=== PATIENT | male | born 1965 | race Caucasian/White ===

== ENCOUNTER 2023-04-30 17:02 | Inpatient (IN) | payer OTHER ==
[2023-04-30 18:12] VITALS: BMI 35.2
[2023-04-30] MEDS ORDERED: BENZONATATE 200 MG CAPSULE PO PRN (18:57)
[2023-04-30] MEDS ORDERED: POLYETHYLENE GLYCOL (HEALTHYLAX) 3350 17 GM PACKET PO PRN (18:57)
[2023-04-30] MEDS ORDERED: BENZOCAINE/MENTHOL (CHLORASEPTIC ) LOZENGE MM PRN (18:57)
[2023-04-30] MEDS ORDERED: DICYCLOMINE HCL 10 MG CAPSULE PO PRN (18:57)
[2023-04-30] MEDS ORDERED: MAG HYDROX/AL HYDROX/SIMETH 30 ML UNIT-DOSE CUP PO PRN (18:57)
[2023-04-30] MEDS ORDERED: MAGNESIUM HYDROX 2400MG/30ML ORAL SUSPENSION 30 ML CUP PO PRN (18:57)
[2023-04-30] MEDS ORDERED: ONDANSETRON *ODT* 4 MG TABLET SL PRN (18:57)
[2023-04-30] MEDS ORDERED: IBUPROFEN 400 MG TABLET (FP) PO PRN (18:57)
[2023-04-30] MEDS ORDERED: LOPERAMIDE HCL 2 MG CAPSULE PO PRN (18:57)
[2023-04-30] MEDS ORDERED: NALOXONE HCL (KLOXXADO) 8 MG SPRAY NS PRN (18:57)
[2023-04-30] MEDS ORDERED: NALOXONE HCL 0.4 MG/ML VIAL IM PRN (18:57)
[2023-04-30] MEDS ORDERED: IBUPROFEN 600 MG TABLET (FP) PO PRN (18:57)
[2023-04-30] MEDS ORDERED: P-EPHED 60MG/TRIPROLIDI 2.5MG TABLET PO PRN (18:57)
[2023-04-30] MEDS ORDERED: BISMUTH SUBSALICYLATE 524 MG/30 ML PO PRN (18:57)
[2023-04-30] MEDS ORDERED: guaiFENesin 600 MG TABLET.ER (FP) PO PRN (18:57)
[2023-04-30] MEDS ORDERED: ALBUTEROL SO4 HFA INHALER IH PRN (21:46)
[2023-04-30] MEDS: MELATONIN 5 MG TABLETS PO SCH (22:35)
[2023-04-30] MEDS: THIAMINE HCL 100 MG TABLET (FP) PO SCH (22:36)
[2023-04-30] MEDS: cloNIDine HCL 0.1 MG TABLET PO PRN (23:00)
[2023-05-01 10:30] LABS: HEMATOCRIT 38.4 % (35.4-49); HEMOGLOBIN 12.9 GM/dL (11.7-16.9); MCH 30.5 pg (25.7-33.7); MCHC 33.6 g/dl (32.0-35.9); MEAN CELL VOLUME 90.6 fl (80-96); MEAN PLT VOLUME 9.4 fl (7.5-11.1); PLATELET COUNT 164 10^3/uL (134-434); RBC 4.23 M/mm3 (4.00-5.60); RDW 13.9 % (11.9-15.9); WHITE BLOOD COUNT 5.3 K/mm3 (4.0-10.0)
[2023-05-01] MEDS: PRENATAL VITAMINS W/ FOLIC ACID TABLET (FP) PO SCH (10:31)
[2023-05-01 10:38] LABS: POTASSIUM 3.9 mmol/L (3.5-5.1)
[2023-05-01 10:51] LABS: ALBUMIN 3.2 g/dl (3.4-5.0); BLOOD UREA NITROGEN 14.2 mg/dL (7-18); CALCIUM 9.2 mg/dL (8.5-10.1)
[2023-05-01 10:53] LABS: CREATININE 0.8 mg/dL (0.55-1.3)
[2023-05-01 10:54] LABS: BILIRUBIN,TOTAL 0.8 mg/dL (0.2-1)
[2023-05-01] MEDS: methaDONE HCL 10 MG TABLET (FOR DETOX USE ONLY) PO ONE (11:15)
[2023-05-02] MEDS: METHOCARBAMOL 500 MG TABLET PO PRN (09:58)
[2023-05-02] MEDS: cloNIDine HCL 0.1 MG TABLET PO PRN (21:39)
[2023-05-03] MEDS: methaDONE HCL 10 MG TABLET (FOR DETOX USE ONLY) PO ONE (10:16)
[2023-05-03] MEDS ORDERED: BUPRENORPHINE/NALOXONE 4 MG/1 MG FILM PACKET SL SCH (14:30)
[2023-05-03] MEDS: BUPRENORPHINE/NALOXONE 2 MG/0.5 MG FILM PACKET SL ONE (15:14)
[2023-05-03] MEDS: BUPRENORPHINE/NALOXONE 4 MG/1 MG FILM PACKET SL SCH (17:22)
[2023-05-03] MEDS: ACETAMINOPHEN 325 MG TABLET (FP) PO PRN (23:02)
[2023-05-04] MEDS: BUPRENORPHINE/NALOXONE 8 MG/2 MG FILM PACKET SL ONE (06:07)
[2023-05-04] MEDS ORDERED: KETOROLAC TROMETHAMINE 15 MG/ML VIAL IM ONE (08:57)
[2023-05-04] MEDS: KETOROLAC TROMETHAMINE 30 MG/1 ML VIAL IM ONE (09:52)
[2023-05-04] MEDS: BUPRENORPHINE/NALOXONE 4 MG/1 MG FILM PACKET SL ONE (10:39)
[2023-05-05] MEDS ORDERED: methaDONE HCL 10 MG TABLET (FOR DETOX USE ONLY) PO ONE (10:00)
[2023-05-05 13:10] VITALS: BP 148/99; PULSE 67; RESP 17; TEMP 97.1
== END 2023-05-05 13:28 | disposition home or self-care (01) | DRG 773 ==
LOC: YASAS 17:02 → Y3N 21:20
PROVIDERS: ADMIT Allergy & Immunology; ATTEND Surgery
PROC: HZ2ZZZZ Detoxification Services for Substance Abuse Treatment (ICD-10-PCS; principal; 2023-04-30)
DX: F11.23 Opioid dependence with withdrawal (principal); F14.20 Cocaine dependence, uncomplicated; F13.90 Sedative, hypnotic, or anxiolytic use, unspecified, uncomplicated; F17.210 Nicotine dependence, cigarettes, uncomplicated; J45.909 Unspecified asthma, uncomplicated; M54.41 Lumbago with sciatica, right side; M54.42 Lumbago with sciatica, left side; G89.29 Other chronic pain; M40.299 Other kyphosis, site unspecified
CPT/HCPCS: 0241U-QW; 36415; 71045-TC-FY; 80053; 85027; 86593; 86780; 93005; 93010

== ENCOUNTER 2024-05-09 17:01 | Inpatient (IN) | payer OTHER ==
[2024-05-09 17:31] VITALS: BMI 24.9
[2024-05-09] MEDS ORDERED: LOPERAMIDE HCL 2 MG CAPSULE PO PRN (18:10)
[2024-05-09] MEDS ORDERED: ACETAMINOPHEN 325 MG TABLET (FP) PO PRN (18:10)
[2024-05-09] MEDS ORDERED: IBUPROFEN 400 MG TABLET (FP) PO PRN (18:10)
[2024-05-09] MEDS ORDERED: MAG HYDROX/AL HYDROX/SIMETH 30 ML UNIT-DOSE CUP PO PRN (18:10)
[2024-05-09] MEDS ORDERED: BENZONATATE 200 MG CAPSULE PO PRN (18:10)
[2024-05-09] MEDS ORDERED: P-EPHED 60MG/TRIPROLIDI 2.5MG TABLET PO PRN (18:10)
[2024-05-09] MEDS ORDERED: NALOXONE (NARCAN) HCL 4 MG/0.1 ML SPRAY NS PRN (18:10)
[2024-05-09] MEDS ORDERED: NICOTINE POLACRILEX 2 MG LOZENGE BC PRN (18:10)
[2024-05-09] MEDS ORDERED: BENZOCAINE/MENTHOL (CHLORASEPTIC ) LOZENGE MM PRN (18:10)
[2024-05-09] MEDS ORDERED: POLYETHYLENE GLYCOL (HEALTHYLAX) 3350 17 GM PACKET PO PRN (18:10)
[2024-05-09] MEDS ORDERED: guaiFENesin 600 MG TABLET.ER (FP) PO PRN (18:10)
[2024-05-09] MEDS ORDERED: methaDONE HCL 10 MG TABLET (FOR DETOX USE ONLY) ONE (19:52)
[2024-05-09] MEDS: methaDONE HCL 10 MG TABLET PO ONE (19:55)
[2024-05-09] MEDS ORDERED: ALBUTEROL SO4 HFA INHALER IH PRN (20:29)
[2024-05-09] MEDS: IBUPROFEN 600 MG TABLET (FP) PO PRN (21:21)
[2024-05-09] MEDS: MELATONIN 5 MG TABLETS PO SCH (21:21)
[2024-05-09] MEDS: THIAMINE 100 MG TABLET PO SCH (21:21)
[2024-05-09] MEDS: TUBERCULIN PPD 5 TU/0.1ML SYRINGE (IN PATIENT USE ONLY) ID ONE (21:22)
[2024-05-09] MEDS: cloNIDine HCL 0.1 MG TABLET PO PRN (21:29)
[2024-05-09 21:57] LABS: EPI CELLS 8 /uL (0-25.1); HYALINE CASTS 1 /uL (0-3.1); URINE APPEARANCE CLEAR; URINE BACTERIA 9 /uL (0-1359); URINE BILIRUBIN NEGATIVE (NEGATIVE); URINE COLOR YELLOW; URINE GLUCOSE (UA) NEGATIVE (NEGATIVE); URINE KETONE NEGATIVE (NEGATIVE); URINE LEUK ESTERASE NEGATIVE (NEGATIVE); URINE NITRITE NEGATIVE (NEGATIVE); URINE PROTEIN 2+ (NEGATIVE); URINE RBC 215 /uL (0-23.9); URINE WBC 5 /uL (0-25.8)
[2024-05-10] MEDS: methaDONE HCL 10 MG TABLET PO SCH (09:47)
[2024-05-10] MEDS: methaDONE HCL 40 MG DISPERSABLE TABLET PO SCH (10:30)
[2024-05-10] MEDS: PRENATAL VITAMINS W/ FOLIC ACID TABLET (FP) PO SCH (10:30)
[2024-05-10 11:41] LABS: HEMATOCRIT 36.5 % (35.4-49); HEMOGLOBIN 12.7 GM/dL (11.7-16.9); MCHC 34.8 g/dl (32.0-35.9); MEAN CELL VOLUME 89.1 fl (80-96); MEAN PLT VOLUME 8.3 fl (7.5-11.1); PLATELET COUNT 144 10^3/uL (134-434); RDW 14.2 % (11.9-15.9); WHITE BLOOD COUNT 6.2 K/mm3 (4.0-10.0)
[2024-05-10 11:43] LABS: POTASSIUM 4.2 mmol/L (3.5-5.1)
[2024-05-10 11:49] LABS: ALBUMIN 3.2 g/dl (3.4-5.0)
[2024-05-10 11:50] LABS: CALCIUM 9.2 mg/dL (8.5-10.1)
[2024-05-10 11:54] LABS: CREATININE 0.9 mg/dL (0.55-1.3)
[2024-05-10 11:55] LABS: BILIRUBIN,TOTAL 0.6 mg/dL (0.2-1); TOT PROT 7.2 g/dl (6.4-8.2)
[2024-05-10] MEDS: MAGNESIUM HYDROX 2400MG/30ML ORAL SUSPENSION 30 ML CUP PO PRN (14:36)
[2024-05-12] MEDS: methaDONE 80 MG, methaDONE 10 MG PO SCH (09:52)
[2024-05-12] MEDS: NICOTINE POLACRILEX 2 MG GUM BUC PRN (09:56)
[2024-05-12] MEDS ORDERED: methaDONE HCL 40 MG DISPERSABLE TABLET PO SCH (10:00)
[2024-05-13] MEDS ORDERED: methaDONE 80 MG, methaDONE 10 MG PO SCH (10:48)
[2024-05-14] MEDS ORDERED: methaDONE HCL 10 MG TABLET PO SCH (10:00)
[2024-05-14] MEDS: methaDONE 80 MG, methaDONE 20 MG PO SCH (10:19)
[2024-05-16] MEDS ORDERED: methaDONE HCL 40 MG DISPERSABLE TABLET PO SCH ×2 (10:00)
[2024-05-17] MEDS: TOLNAFTATE 1% CREAM 15 GM TUBE TP SCH (15:42)
[2024-05-17] MEDS: VITAMINS A AND D TOPICAL OINTMENT TP SCH (19:24)
[2024-05-17] MEDS: METHYL SALICYLATE/MENTHOL 30 GM TUBE TP SCH (21:29)
[2024-05-17] MEDS: LIDOCAINE PATCH REMOVAL MC SCH (21:32)
[2024-05-17] MEDS: diphenhydrAMINE HCL 25 MG CAPSULE (FP) PO PRN (21:32)
[2024-05-17] MEDS: DOCUSATE SODIUM 100 MG CAPSULE (FP) PO SCH (21:32)
[2024-05-18] MEDS ORDERED: methaDONE HCL 10 MG TABLET PO ONE (08:24)
[2024-05-18] MEDS: LIDOCAINE 5% TOPICAL PATCH TP SCH (10:10)
[2024-05-19] MEDS ORDERED: methaDONE HCL 10 MG TABLET PO SCH (06:00)
[2024-05-19] MEDS: methaDONE HCL 40 MG DISPERSABLE TABLET PO SCH (09:58)
[2024-05-20 06:54] VITALS: RESP 16
[2024-05-22] MEDS ORDERED: VITAMINS A AND D TOPICAL OINTMENT TP PRN (11:32)
[2024-05-24 06:31] VITALS: TEMP 97.1
[2024-05-24 09:33] VITALS: BP 149/88; PULSE 70
[2024-05-24] MEDS: NICOTINE POLACRILEX 4 MG GUM BUC PRN (10:14)
== END 2024-05-24 10:55 | disposition home or self-care (01) | DRG 772 ==
LOC: YASAS 17:01 → Y3NR 19:56 → Y5N 05-10 11:08
PROVIDERS: ADMIT Psychiatry & Neurology Pain Medicine; ATTEND Psychiatry & Neurology Pain Medicine
PROC: HZ42ZZZ Group Counseling for Substance Abuse Treatment, Cognitive-Behavioral (ICD-10-PCS; principal; 2024-05-09)
DX: F11.20 Opioid dependence, uncomplicated (principal); F14.20 Cocaine dependence, uncomplicated; F17.210 Nicotine dependence, cigarettes, uncomplicated; F19.282 Other psychoactive substance dependence with psychoactive substance-induced sleep disorder; G47.00 Insomnia, unspecified; I10 Essential (primary) hypertension; J45.909 Unspecified asthma, uncomplicated; B35.3 Tinea pedis; M54.41 Lumbago with sciatica, right side; M54.42 Lumbago with sciatica, left side; G89.29 Other chronic pain; Z99.89 Dependence on other enabling machines and devices; Z59.02 Unsheltered homelessness
CPT/HCPCS: 36415; 80053; 80305; 80307; 81003; 85027; 86593; 86780; 86803; 87522; 87811; 93005; 93010